=== PATIENT | female | born 1955 | race Caucasian/White ===

== ENCOUNTER 2022-06-04 11:17 | Emergency (ER) | payer OTHER ==
[2022-06-04 12:01] LABS: Absolute Lymphocytes (CBC) 1.5 K/uL (0.7-4.9); Hematocrit 33.1 % (36.0-45.0); Lymphocytes % 13.9 % (15.3-44.8); MCV 85.3 fL (80-100); MPV 8.1 fL (7.6-11.3); RBC Red Blood Cell Count 3.88 M/uL (3.86-4.86)
--- NOTE | 2022-06-04 12:15 | RAD REPORT ---
EXAM DESCRIPTION: RAD - Wrist Left 3 View - 06/04/2022 11:39 am CLINICAL HISTORY: Pain, swelling COMPARISON: None. FINDINGS: Three views of the left wrist. No fracture is identified. Moderate degenerative changes at the scaphoid multangular articulation. There is no dislocation or periosteal reaction noted. No foreign body or other soft tissue abnormalit y. IMPRESSION: No acute osseous abnormality of the left breast. Degenerative changes.
[2022-06-04 12:16] LABS: Potassium 3.5 mmol/L (3.5-5.1); Uric Acid 6.3 mg/dL (2.6-6.0)
[2022-06-04] MEDS ORDERED: KETOROLAC 30 MG/ML INJ ONE (13:37)
--- NOTE | 2022-06-04 14:12 | EDPHYS ---
Physician Documentation [facility] Name: Kacey Tipton Age: 67 yrs Sex: Female : 1955 Arrival Date: 06/04/2022 Time: 11:20 Bed 23 Private MD: ED Physician Rashel Mendez HPI: 06/04 11:30 This 67 yrs old Female presents to ER via Ambulatory with complaints of Wrist jmm swelling/pain. 11:30 The patient or guardian reports pain. Onset: The symptoms/episode began/occurred jmm gradually. Modifying factors: The symptoms are alleviated by nothing, the symptoms are aggravated by movement. Is a 67-year-old female with history of hypertension, depression the presents emerged part with complaints of left wrist pain beginning yesterday worsening today. Denies any trauma. Denies fever, denies any known injury.. Historical: - Allergies: 11:26 Sulfa (Sulfonamide Antibiotics); ap3 - PMHx: 11:26 Hypertensive disorder; Depressive disorder; breast cancer; ap3 - PSHx: 11:26 spine fusion sx; right knee replacement; ap3 - Immunization history:: Client reports receiving the 2nd dose of the Covid vaccine, Flu vaccine is up to date. - Social history:: Smoking status: Patient denies any tobacco usage or history of. Patient uses alcohol, only on a social basis. ROS: 17:11 Constitutional: Negative for fever, chills, and weight loss, Cardiovascular: Negative jmm for chest pain, palpitations, and edema, Respiratory: Negative for shortness of breath, cough, wheezing, and pleuritic chest pain. 17:11 MS/extremity: Positive for pain. 17:11 All other systems are negative. Exam: 17:11 Constitutional: This is a well developed, well nourished patient who is awake, alert, jmm and in no acute distress. Head/Face: atraumatic. Eyes: EOMI, no conjunctival erythema appreciated ENT: Moist Mucus Membranes Neck: Trachea midline, Supple Chest/axilla: Normal chest wall appearance and motion. Cardiovascular: Regular rate and rhythm. No edema appreciated Respiratory: Normal respirations, no respiratory distress appreciated Abdomen/GI: Non distended Back: Normal ROM Skin: General appearance color normal 17:11 Musculoskeletal/extremity: Mild swelling noted to the left wrist, compartments are soft, full radial pulse, full range of motion, neurovascular intact. 17:11 Skin: Appearance: Color: normal in color. 17:11 Neuro: Orientation: is normal, Mentation: is normal, Memory: is normal. 17:11 Psych: Behavior/mood is pleasant, cooperative. Vital Signs: 11:24 BP 120 / 92; Pulse 67; Resp 19; Temp 98.7; Pulse Ox 100% ; Weight 94.35 kg; Height 5 ap3 ft. 1 in. (154.94 cm); Pain 9/10; 13:25 BP 121 / 67; Pulse 63; Resp 18; Pulse Ox 98% on R/A; kr3 14:30 BP 112 / 60; Pulse 66; Resp 18; Pulse Ox 100% on R/A; kr3 15:17 BP 114 / 63; Pulse 67; Resp 18; Pulse Ox 97% on R/A; kr3 11:24 Body Mass Index 39.30 (94.35 kg, 154.94 cm) ap3 MDM: 11:30 Patient medically screened. [facility] 14:10 Data reviewed: vital signs, nurses notes. [facility] 17:11 Differential diagnosis: Gout, tendinitis, septic joint. Data reviewed: vital signs, [facility] nurses notes. I considered the following discharge prescriptions or medication management in the emergency department Medications were administered in the Emergency Department. See MAR. Independent interpretation of the following test(s) in the Emergency Department X-Ray: My interpretation is No fracture appreciated. External Records Reviewed: CONTINUOUS IMPROVEMENT COORDINATOR aware did not reveal any history of opioid prescription. Counseling: I had a detailed discussion with the patient and/or guardian regarding: the historical points, exam findings, and any diagnostic results supporting the discharge/admit diagnosis, the need for outpatient follow up, to return to the emergency department if symptoms worsen or persist or if there are any questions or concerns that arise at home. ED course: Uric acid is elevated. Patient will be treated for gout flare. I do not current suspect septic joint. No injury appreciated to the joint. Advised follow with Ortho and otherwise given strict return precautions. Patient understood and agrees plan of care. 06/04 11:31 Order name: Wrist Left (3 View) XRAY; Complete Time: 12:17 [facility] 06/04 11:31 Order name: Saline Lock; Complete Time: 11:53 [facility] 06/04 11:31 Order name: CBC with Diff; Complete Time: 12:01 [facility] 06/04 11:31 Order name: BMP; Complete Time: 12:17 [facility] 06/04 11:31 Order name: Uric Acid; Complete Time: 12:17 [facility] 06/04 15:03 Order name: Wrist Splint; Complete Time: 15:14 [facility] Administered Medications: 13:35 Drug: Ketorolac 15 mg Route: IVP; Site: right antecubital; kr3 15:17 Follow up: Response: No adverse reaction kr3 14:30 Drug: morphine 4 mg Route: IVP; Infused Over: 4 mins; Site: right antecubital; kr3 15:17 Follow up: Response: No adverse reaction; RASS: Alert and Calm (0) kr3 Disposition: 16:30 Co-signature as Attending Physician, Rashel Mendez MD. rn Disposition Summary: 06/04/22 14:11 Discharge Ordered Location: Home [facility] Condition: Stable [facility] Diagnosis - Gout, unspecified [facility] Followup: [facility] - With: Coleman Hernández MD - When: 2 - 3 days - Reason: Recheck today's complaints, Continuance of care, Re-evaluation by your physician Discharge Instructions: - Discharge Summary Sheet [facility] - Gout [facility] - Low-Purine Eating Plan [facility] Forms: - Medication Reconciliation Form [facility] - Thank You Letter [facility] - Antibiotic Education [facility] - Prescription Opioid Use [facility] Prescriptions: - Pepcid 20 mg Oral Tablet - take 1 tablet by ORAL route every 12 hours for 10 days; 20 tablet; Refills: 0, [facility] Product Selection Permitted - Tramadol 50 mg Oral Tablet - take 1 tablet by ORAL route every 8 hours as needed; 12 tablet; Refills: 0, [facility] Product Selection Permitted - Medrol (Terrell) 4 mg Oral Tablets, Dose Pack - take 1 tablet by ORAL route as directed - follow package instructions; 1 [facility] packet; Refills: 0, Product Selection Permitted - orphenadrine citrate 100 mg Oral Tablet Sustained Release - take 1 tablet by ORAL route 2 times per day As needed; 20 tablet; Refills: 0, [facility] Product Selection Permitted Signatures: Dispatcher [employer] EDLuis Daniel Cheng PA PA [facility] Rashel Mendez MD MD rn Prokisch, Amanda, RN RN ap3 Elliot, Melita, RN RN kr3 Corrections: (The following items were deleted from the chart) 17:12 11:30 mild wrist swelling noted , full radial pulse, compartments soft, NVI. jmm surinder
--- NOTE | 2022-06-04 14:12 | ER ---
Nurse's Notes [facility] Name: Kacey Tipton Age: 67 yrs Sex: Female : 1955 Arrival Date: 06/04/2022 Time: 11:20 Bed 23 Private MD: Diagnosis: Gout, unspecified Presentation: 06/04 11:24 Chief complaint: Patient states: her left wrist started hurting this morning, and had ap3 progressively gotten worse throughout the day. patient denies any trauma to the wrist. patient presents to the ED with swelling to the left wrist and hand. Coronavirus screen: At this time, the client does not indicate any symptoms associated with coronavirus-19. Ebola Screen: No symptoms or risks identified at this time. Initial Sepsis Screen: Does the patient meet any 2 criteria? No. Patient's initial sepsis screen is negative. Does the patient have a suspected source of infection? No. Patient's initial sepsis screen is negative. Risk Assessment: Do you want to hurt yourself or someone else? Patient reports no desire to harm self or others. Onset of symptoms was June 04, 2022. 11:24 Method Of Arrival: Ambulatory ap3 11:24 Acuity: JEFF 3 ap3 Triage Assessment: 11:27 General: Appears uncomfortable, Behavior is calm, cooperative, appropriate for age. ap3 Pain: Complains of pain in left hand \T\ left wrist Pain began gradually, since this morning. Neuro: Level of Consciousness is awake, alert, obeys commands, Oriented to person, place, time, situation, Appropriate for age Gait is steady. Cardiovascular: Patient's skin is warm and dry. Respiratory: Airway is patent Respiratory effort is even, unlabored, Respiratory pattern is regular, symmetrical. Musculoskeletal: Swelling present in left hand \T\ wrist. Historical: - Allergies: 11:26 Sulfa (Sulfonamide Antibiotics); ap3 - PMHx: 11:26 Hypertensive disorder; Depressive disorder; breast cancer; ap3 - PSHx: 11:26 spine fusion sx; right knee replacement; ap3 - Immunization history:: Client reports receiving the 2nd dose of the Covid vaccine, Flu vaccine is up to date. - Social history:: Smoking status: Patient denies any tobacco usage or history of. Patient uses alcohol, only on a social basis. Screenin:28 [facility] ED Fall Risk Assessment (Adult) History of falling in the last 3 months, ap3 including since admission No falls in past 3 months (0 pts). Abuse screen: Denies threats or abuse. Nutritional screening: No deficits noted. Tuberculosis screening: No symptoms or risk factors identified. Assessment: 13:23 General: Appears in no apparent distress. uncomfortable, Behavior is calm, cooperative, kr3 appropriate for age. Pain: Complains of pain in right arm. Neuro: Level of Consciousness is awake, alert, obeys commands, Oriented to person, place, time, situation. Cardiovascular: Patient's skin is warm and dry. Respiratory: Airway is patent Trachea midline Respiratory effort is even, unlabored, Respiratory pattern is regular, symmetrical. GI: No signs and/or symptoms were reported involving the gastrointestinal system. : No signs and/or symptoms were reported regarding the genitourinary system. EENT: No signs and/or symptoms were reported regarding the EENT system. Derm: No signs and/or symptoms reported regarding the dermatologic system. Musculoskeletal: Swelling present in left arm. 14:15 Reassessment: Patient and/or family updated on plan of care and expected duration. Pain kr3 level reassessed. Patient is alert, oriented x 3, equal unlabored respirations, skin warm/dry/pink. 14:15 Reassessment: patient did not get any relief from the ketorlac, would like something to kr3 help with pain. 15:15 Reassessment: Patient is alert, oriented x 3, equal unlabored respirations, skin kr3 warm/dry/pink. patient request wrist splint. Vital Signs: 11:24 BP 120 / 92; Pulse 67; Resp 19; Temp 98.7; Pulse Ox 100% ; Weight 94.35 kg; Height 5 ap3 ft. 1 in. (154.94 cm); Pain 9/10; 13:25 BP 121 / 67; Pulse 63; Resp 18; Pulse Ox 98% on R/A; kr3 14:30 BP 112 / 60; Pulse 66; Resp 18; Pulse Ox 100% on R/A; kr3 15:17 BP 114 / 63; Pulse 67; Resp 18; Pulse Ox 97% on R/A; kr3 11:24 Body Mass Index 39.30 (94.35 kg, 154.94 cm) ap3 ED Course: 10:50 Inserted saline lock: 20 gauge in right antecubital area, using aseptic technique. kr3 Blood collected. 11:20 Patient arrived in ED. mr 11:26 Triage completed. ap3 11:28 Arm band placed on right wrist. ap3 11:29 Luis Daniel Becerra PA is PHCP. jmm 11:29 Rashel Mendez MD is Attending Physician. jmm 11:41 Wrist Left (3 View) XRAY In Process Unspecified. EDMS 11:53 Uric Acid Sent. ss 11:53 BMP Sent. ss 11:53 CBC with Diff Sent. ss 12:15 Bed in low position. Call light in reach. Side rails up X 1. kr3 13:22 Melita Zarate, SONY is Primary Nurse. kr3 14:10 Coleman Hernández MD is Referral Physician. jmm 15:18 No provider procedures requiring assistance completed. kr3 15:19 IV discontinued, intact, bleeding controlled, No redness/swelling at site. Pressure kr3 dressing applied. Administered Medications: 13:35 Drug: Ketorolac 15 mg Route: IVP; Site: right antecubital; kr3 15:17 Follow up: Response: No adverse reaction kr3 14:30 Drug: morphine 4 mg Route: IVP; Infused Over: 4 mins; Site: right antecubital; kr3 15:17 Follow up: Response: No adverse reaction; RASS: Alert and Calm (0) kr3 Medication: 15:20 VIS not applicable for this client. kr3 Outcome: 14:11 Discharge ordered by . jmm 15:19 Discharged to home ambulatory. kr3 15:19 Condition: stable 15:19 Discharge instructions given to patient, Instructed on discharge instructions, follow up and referral plans. medication usage, Demonstrated understanding of instructions, follow-up care, medications, Prescriptions given X 4. 15:20 Patient left the ED. kr3 Signatures: Dispatcher [employer] EDMS Luis Daniel Becerra PA PA jmAsha StewardNegrita, RN Yara Degroot RN RN ap3 Melita Zarate, SONY CARDOZA kr3
[2022-06-04] MEDS ORDERED: MORPHINE 4 MG/ML SYR ONE (14:35)
[2022-06-04 15:30] VITALS: TEMP 98.7
[2022-06-04 15:33] VITALS: BP 114/63; O2SAT 97
== END 2022-06-04 15:20 | disposition home or self-care (01) ==
LOC: ER 11:17
DX: M10.9 Gout, unspecified (principal); I10 Essential (primary) hypertension; Z88.2 Allergy status to sulfonamides
CPT/HCPCS: 36415; 80048; 84550; 85025